=== PATIENT | female | born 1990 | race Caucasian/White ===

== ENCOUNTER 2020-09-06 08:41 | Emergency (ER) | payer OTHER, SELFPAY ==
[2020-09-06 08:51] VITALS: BP 114/64; PULSE 67; RESP 18; TEMP 36.9; O2SAT 99
--- NOTE | 2020-09-06 09:07 | ED.SKABFB ---
HPI - Skin/Abscess/Foreign Bdy General Chief complaint: Skin/Abscess/Foreign Body Stated complaint: Rash on Face and swollen right Eye Time Seen by Provider: 09/06/20 09:00 Source: patient and RN notes reviewed Mode of arrival: ambulatory Limitations: no limitations History of Present Illness HPI narrative: Patient presents today complaining of a rash to her face and left lower back x3 days. 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 Denies pain, but does report some itching. She has tried Benadryl x1, which does help with the itching. She has been vaccinated against COVID-19. complaint: rash Related Data Home Medications Medication Instructions Recorded Confirmed acyclovir 400 mg PO DAILY 09/06/20 09/06/20 hydroxyzine HCl 50 mg PO DAILY PRN 09/06/20 09/06/20 lithium carbonate 150 mg PO BID 09/06/20 09/06/20 Allergies Allergy/AdvReac Type Severity Reaction Status Date / Time azithromycin Allergy Intermediate VAGINA Verified 09/06/20 09:00 SWELLS haloperidol Allergy Unknown Unknown Verified 09/06/20 09:00 Penicillins Allergy Unknown Unknown Verified 09/06/20 09:00 Review of Systems Review of Systems: Narrative: CONSTITUTIONAL: Denies body aches, fever, chills, or sweats. EYES: Denies visual changes, redness, or discharge. ENT: Denies rhinorrhea, congestion, sore throat, or otalgia. CARDIOVASCULAR: Denies chest pain, palpitations, or edema. RESPIRATORY: Denies cough or dyspnea. GASTROINTESTINAL: Denies abdominal pain, nausea, vomiting, or diarrhea. GENITOURINARY: Denies dysuria or hematuria. SKIN: Denies wounds.+ Pruritic rash MUSCULOSKELETAL: Denies back pain, joint pain, or myalgia. NEUROLOGIC: Denies headache, numbness, tingling, or weakness. PSYCH: Denies depression or anxiety. [facility] Past Medical History Medical History (Updated 09/06/20 @ 09:12 by Maddie Hoyt, CARE TEAM COORDINATOR SCHEDULER, ) Anxiety Bipolar disorder Social History Social History Gender identity (if verbalized by the patient): Female Comments At time of signature, I have reviewed and agree with nursing past medical, surgical, social and family history unless otherwise noted. Please see nursing chart for further information. There is no relevant family history pertinent to the presenting complaint Exam Narrative: Exam Narrative: GENERAL: Well-appearing, well-nourished, and in no acute distress. HEAD: Normocephalic, atraumatic. EYES: EOMI. No redness or drainage. Conjunctivae normal. ENT: Mucous membranes pink and moist. NECK: Normal AROM. CHEST: No respiratory distress. EXTREMITIES: Normal range of motion. No edema. SKIN: Warm, dry. Capillary refill normal. Normal skin turgor. Family erythematous papular rash to the right spiritism, extending below the right eye and bilateral nasolabial folds. Patient also has a large patch to the left lower back. No vesicles, crusting, or drainage. NEURO: No focal deficits. Alert and oriented x3. Gait steady. PSYCH: Normal affect. No signs of depression or anxiety. Course Vital Signs Vital signs: Vital Signs Temperature 98.4 F 09/06/20 08:51 Pulse Rate 67 09/06/20 08:51 Respiratory Rate 18 09/06/20 08:51 Blood Pressure 114/64 09/06/20 08:51 Pulse Oximetry 99 09/06/20 08:51 Temperature 98.4 F 09/06/20 08:51 Pulse Rate 67 09/06/20 08:51 Respiratory Rate 18 09/06/20 08:51 Blood Pressure 114/64 09/06/20 08:51 Pulse Oximetry 99 09/06/20 08:51 Reviewed. Pt has been instructed to follow up with his PCP regarding his elevated blood pressure today. MDM - Skin/Abscess/Foreign Bdy Differential Diagnosis Differential diagnosis: Likely abscess of skin or subcutaneous tissue, viral exanthem, urticaria, cellulitis, eczema, impetigo and contact dermatitis Critical Care Time Critical Care Time Critical Care Time: No Discharge Plan Discharge Clinical Impression: Contact dermatitis Qualifiers: Contact dermati
== END 2020-09-06 09:15 | disposition home or self-care (01) ==
PROVIDERS: Emergency Provider Nurse Practitioner
DX: L25.9 Unspecified contact dermatitis, unspecified cause (principal); F41.9 Anxiety disorder, unspecified; F31.9 Bipolar disorder, unspecified
CPT/HCPCS: 99213; G0463

== ENCOUNTER 2020-09-20 19:07 | Emergency (ER) | payer OTHER, SELFPAY ==
--- NOTE | ~2020-09-20 | XR_ITS ---
EXAMINATION: XR chest 2V EXAM DATE: 09/20/2020 19:26 INDICATION: Choked on a candy, possible aspiration . TECHNIQUE: Frontal and lateral projections of the chest obtained and reviewed. There is no prior dannie dy for comparison. FINDINGS: The lungs are clear. There are no pleural effusions. The cardiomediastinal silhouette is within normal limits. There is no pneumothorax suspected. The bones and soft tissues are unremarkab le. IMPRESSION: No acute cardiopulmonary findings. Reviewed, dictated and finalized at location A.
--- NOTE | 2020-09-20 19:16 | ED.GENADULT ---
HPI - General Adult General Chief complaint: Anxiety Stated complaint: throat pain / trouble breathing Time Seen by Provider: 09/20/20 19:17 Mode of arrival: ambulatory Limitations: no limitations History of Present Illness HPI narrative: PATIENT WAS LAYING DOWN WATCHING TV AND EATING CANDY. PATIENT FEELS STATES SHE GOT CHOKED ON THE CANDY AND FELT IF SHE COUGH NOT BREATH. PATIENT PRESENTS TO [facility] COMPLAINING OF THE FEELING THAT SHE ASPIRATED HER CANDY. NO SHORTNESS OF BREATH AND NO CHEST PAIN. RESP EVEN AND NON LABORED. NO RESP DISTRESS. Patient states she had asthma as a child and feels like she had an asthma attack she used her inhaler that she had at home but is it is . Onset (ago): minute(s) (20 MINUTES AGO) Location: chest Related Data Home Medications Medication Instructions Recorded Confirmed acyclovir 400 mg PO BID 09/06/20 09/20/20 hydroxyzine HCl 50 mg PO DAILY PRN 09/06/20 09/20/20 lithium carbonate 150 mg PO BID 09/06/20 09/20/20 Allergies Allergy/AdvReac Type Severity Reaction Status Date / Time azithromycin Allergy Intermediate VAGINA Verified 09/20/20 19:27 SWELLS haloperidol Allergy Unknown Unknown Verified 09/20/20 19:27 Penicillins Allergy Unknown Unknown Verified 09/20/20 19:27 Review of Systems Review of Systems: Narrative: CONSTITUTIONAL: Denies fever, chills, or sweats. EYES: Denies visual changes, redness, or discharge. ENT: Denies rhinorrhea, congestion, sore throat, or otalgia. CARDIOVASCULAR: Denies chest pain, palpitations, or edema. RESPIRATORY: Denies cough or dyspnea. GASTROINTESTINAL: Denies abdominal pain, nausea, vomiting, or diarrhea. GENITOURINARY: Denies dysuria or hematuria. SKIN: Denies rash or itching. MUSCULOSKELETAL: Denies back pain, joint pain, or myalgia. NEUROLOGIC: Denies headache, numbness, or weakness. PSYCHIATRIC: Denies anxiety or depression. Allergic/Immunologic: Comments: At time of signature, agree with nursing past medical, surgical, social and family history. There is no relevant family history pertinent to the presenting complaint [facility] Past Medical History Medical History (Updated 09/20/20 @ 19:33 by GINA John) Anxiety Bipolar disorder Social History Social History Gender identity (if verbalized by the patient): Female Exam Narrative: Exam Narrative: GENERAL: Well-appearing, well-nourished, and in no acute distress. HEAD: Normocephalic, atraumatic. EYES: PERRLA and EOMI. ENT: Nares clear, no rhinorrhea or epistaxis. Mucous membranes moist. NECK: Supple. CHEST: Clear to auscultation. No respiratory distress. HEART: Regular rate and rhythm. No murmur heard. Normal peripheral pulses. ABDOMEN: Soft, nontender, nondistended, normal active bowel sounds. EXTREMITIES: Normal range of motion. No edema. SKIN: Warm, dry, no rash. NEURO: No focal deficits. Alert and oriented x3. Elle Coma Scale Eye Opening: Spontaneous 4 Elle Coma Scale Motor: Obeys Commands 6 [place] Coma Scale Verbal: Oriented 5 [place] Coma Scale Total 15 Const: General: healthy appearing, no acute distress and alert Orientation/consciousness: patient oriented x3 HENMT: Head: normal to inspection Face and sinus: normal facial exam Eyes: Conjunctivae: conjunctivae normal Pupils: Equal, round and reactive pupils present EOM: EOMs intact bilaterally Chest: Chest palpation & inspection: normal inspection of the chest Resp: Effort & Inspection: normal respiratory effort Auscultation: clear to auscultation bilaterally Cardio: Rate: regular rate Rhythm: regular rhythm GI: GI Palp: Yes Soft to palpation Auscultation: normal bowel sounds Course Vital Signs Vital signs: Vital Signs Temperature 36.7 C 09/20/20 19:17 Pulse Rate 81 09/20/20 19:17 Respiratory Rate 18 09/20/20 19:17 Blood Pressure 143/77 H 09/20/20 19:17 Pulse Oximetry 100 09/20/20 19:17 Temperature 36.7 C 09/20/20 19:17 Pulse Rate 81
[2020-09-20 19:17] VITALS: BP 143/77; PULSE 81; RESP 18; TEMP 36.7; O2SAT 100
== END 2020-09-20 19:40 | disposition home or self-care (01) ==
PROVIDERS: Emergency Provider Nurse Practitioner Family
DX: J45.909 Unspecified asthma, uncomplicated (principal); F31.9 Bipolar disorder, unspecified
CPT/HCPCS: 71046; 99213; G0463

== ENCOUNTER 2020-12-07 08:44 | Emergency (ER) | payer OTHER, SELFPAY ==
[2020-12-07 08:50] VITALS: BP 124/74; PULSE 69; RESP 20; TEMP 36.2; O2SAT 100
--- NOTE | 2020-12-07 09:23 | ED.URI ---
HPI - URI/Sore Throat General Chief Complaint: Upper Respiratory Infection Stated Complaint: Sore Throat/Cough Time Seen by Provider: 12/07/20 09:14 Source: patient and RN notes reviewed Mode of arrival: ambulatory Limitations: no limitations History of Present Illness HPI Narrative: Patient presents today complaining of 5-day history of cough, sore throat, sneezing, nasal congestion. She denies rhinorrhea, fever, shortness of breath, difficulty swallowing. She has been taking some [id number] cold and flu medication with relief. She has also been using an albuterol inhaler that she had leftover. Denies history of asthma. She has been vaccinated against COVID-19. MD elicited complaint: cough and sore throat Related Data Home Medications Medication Instructions Recorded Confirmed acyclovir 400 mg PO BID 09/06/20 12/07/20 hydroxyzine HCl 50 mg PO DAILY PRN 09/06/20 12/07/20 lithium carbonate 150 mg PO BID 09/06/20 12/07/20 norgestimate-ethinyl estradiol 0.25 tablet PO DAILY 12/07/20 12/07/20 [Jessica] Allergies Allergy/AdvReac Type Severity Reaction Status Date / Time azithromycin Allergy Intermediate VAGINA Verified 09/20/20 19:27 SWELLS haloperidol Allergy Unknown Unknown Verified 09/20/20 19:27 Penicillins Allergy Unknown Unknown Verified 09/20/20 19:27 Review of Systems Review of Systems: CONSTITUTIONAL: Denies body aches, fever, chills, or sweats. EYES: Denies visual changes, redness, or discharge. ENT: Denies rhinorrhea, or otalgia.+ Congestion, sore throat, sneezing CARDIOVASCULAR: Denies chest pain, palpitations, or edema. RESPIRATORY: Denies dyspnea.+ Cough GASTROINTESTINAL: Denies abdominal pain, nausea, vomiting, or diarrhea. GENITOURINARY: Denies dysuria or hematuria. SKIN: Denies rash, itching, or wounds. MUSCULOSKELETAL: Denies back pain, joint pain, or myalgia. NEUROLOGIC: Denies headache, numbness, tingling, or weakness. PSYCH: Denies depression or anxiety. [facility] Past Medical History Medical History Anxiety Bipolar disorder Social History Social History Gender identity (if verbalized by the patient): Female Comments At time of signature, I have reviewed and agree with nursing past medical, surgical, social and family history unless otherwise noted. Please see nursing chart for further information. There is no relevant family history pertinent to the presenting complaint Exam Narrative: GENERAL: Well-appearing, well-nourished, and in no acute distress. HEAD: Normocephalic, atraumatic. EYES: EOMI. No redness or drainage. Conjunctivae normal. ENT: Mucous membranes pink and moist. Nares clear. No rhinorrhea. TMs normal bilaterally. Throat normal with copious white postnasal drainage. Uvula midline. NECK: Normal AROM. Supple. No lymphadenopathy. CHEST: No respiratory distress. Clear to auscultation. HEART: Regular rate and rhythm. No murmur appreciated. Normal peripheral pulses. EXTREMITIES: Normal range of motion. No edema. SKIN: Warm, dry, no rash. Capillary refill normal. Normal skin turgor. NEURO: No focal deficits. Alert and oriented x3. Gait steady. PSYCH: Normal affect. No signs of depression or anxiety. Course Course Emergency Course: Patient declines course of steroids for her cough. Vital Signs Vital signs: Vital Signs Temperature 97.2 F L 12/07/20 08:50 Pulse Rate 69 12/07/20 08:50 Respiratory Rate 20 12/07/20 08:50 Blood Pressure 124/74 12/07/20 08:50 Pulse Oximetry 100 12/07/20 08:50 Temperature 97.2 F L 12/07/20 08:50 Pulse Rate 69 12/07/20 08:50 Respiratory Rate 20 12/07/20 08:50 Blood Pressure 124/74 12/07/20 08:50 Pulse Oximetry 100 12/07/20 08:50 Reviewed. Pt has been instructed to follow up with her PCP regarding her elevated blood pressure today. MDM - URI/Sore Throat Differential Diagnosis
== END 2020-12-07 09:31 | disposition home or self-care (01) ==
PROVIDERS: Emergency Provider Nurse Practitioner
DX: J06.9 Acute upper respiratory infection, unspecified (principal); F31.9 Bipolar disorder, unspecified; F41.9 Anxiety disorder, unspecified
CPT/HCPCS: 87081; 87880; 99213; G0463